=== PATIENT | male | born 1940 | race Caucasian/White ===

== ENCOUNTER 2018-07-08 11:13 | Emergency (ER) | payer MEDICARE ==
[2018-07-08 11:21] VITALS: BP 164/98
--- NOTE | 2018-07-08 12:06 | UC ---
Respiratory Complaint HPI - HPI Summary HPI Summary: 78 yo male presents with SOB. He tells me that he has a significant history of COPD, cardiac stents, and pacemaker. He is on daily oxygen around 2-3L. Over the last 3-4 days he has noticed increased work of breathing and SOB with any activity. He says even standing up straight will cause him to experience SOB. As a result, he has turned his O2 up to 4L with moderate relief. He called his PCP and they recommended his be evaluated for PNA. Pt does report some increased coughing over the last few days, but nonproductive. Denies fever, chills, sore throat, chest pain, n/v. - History of Current Complaint Chief Complaint: UCRespiratory Stated Complaint: POSS PNEUMONIA Time Seen by Provider: 07/08/18 11:46 Hx Obtained From: Patient Onset/Duration: Gradual Onset Severity Currently: None Pain Intensity: 0 Character: Cough: Nonproductive - Allergies/Home Medications Allergies/Adverse Reactions: Allergies Allergy/AdvReac Type Severity Reaction Status Date / Time ciprofloxacin [From Cipro] Allergy GI Upset Verified 07/08/18 11:22 Home Medications: Home Medications Albuterol/Ipratropium NEB.JES* [Duoneb (Albuterol 2.5 MG/Ipratropium 0.5 MG)] 1 neb INH Q6H PRN 07/08/18 [History Confirmed 07/08/18] Digoxin [Digitek] 125 mcg PO 07/08/18 [History] Finasteride [Proscar] 5 mg PO 07/08/18 [History] Fluticasone NASAL SPRAY 50MCG* [Flonase NASAL SPRAY 50MCG*] 2 spray BOTH NARES DAILY 07/08/18 [History Confirmed 07/08/18] Metoprolol Succinate XL TAB* [Toprol XL TAB*] 50 mg PO DAILY 07/08/18 [History Confirmed 07/08/18] Roflumilast [Daliresp] 500 mcg PO 07/08/18 [History] Rosuvastatin (NF) [Crestor (NF)] 10 mg PO 1700 07/08/18 [History Confirmed 07/08] PMH/Surg Hx/FS Hx/Imm Hx Endocrine History: Dyslipidemia Cardiovascular History: Cardiac Disease, Hypertension, Pacemaker/ICD Respiratory History: COPD - Surgical History Surgical History: Yes Surgery Procedure, Year, and Place: iza to rt leg, stent, pacer - Family History Known Family History: Positive: Cardiac Disease, Respiratory Disease - Social History Occupation: Retired Lives: With Family Alcohol Use: None Substance Use Type: None Smoking Status (MU): Former Smoker Review of Systems Constitutional: Negative Skin: Negative Eyes: Negative ENT: Negative Respiratory: Shortness Of Breath, Cough Cardiovascular: Negative Gastrointestinal: Negative Neurological: Negative Psychological: Negative All Other Systems Reviewed And Are Negative: Yes Physical Exam - Summary Physical Exam Summary: GENERAL: NAD. 4L via NC SKIN: No rashes, sores, lesions, or open wounds. HEENT: Head: AT/NC Eyes: Conjunctiva clear without inflammation or discharge. Ears: Hearing grossly normal. TMs intact, no bulging, erythema, or edema. Nose: Nasal mucosa pink and moist. NTTP maxillary and frontal sinus. Throat: Posterior oropharynx without exudates, erythema, or tonsillar enlargement. Uvula midline. NECK: Supple. Nontender. No lymphadenopathy. CHEST: Decreased and distant breath sounds throughout. No r/r/w appreciated. No accessory muscle use. Breathing comfortably and in no distress. CV: Pulses intact. Brisk cap refill. NEURO: Alert. CN II-XII grossly intact. PSYCH: Age appropriate behavior. Triage Information Reviewed: Yes Vital Signs: Initial Vital Signs Temp 98.2 F 07/08/18 11:17 Pulse 90 07/08/18 11:17 Resp 22 07/08/18 11:17 BP 164/98 07/08/18 11:17 Pulse Ox 97 07/08/18 11:17 Vital Signs Reviewed: Yes Diagnostic Evaluation - Laboratory O2 Sat by Pulse Oximetry: 97 Respiratory Course/Dx - Course Course Of Treatment: CXR: IMPRESSION: FINDINGS CONSISTENT WITH COPD, NO EVIDENCE FOR ACUTE FINDING. EKG with paced rhythm at 104bpm. Incomplete LBBB. No ST changes as read by Dr. Houser. At rest on 4L his O2% is 97%. With light walking on 4L his O2% drops to ~92%. This could be a COPD exacerbation, but I believe pt is in need of more testing such as stat labwork and potential advanced imaging of the chest. For these reasons I have advised pt and his to go to the ED for further evaluation - pt and were agreeable to this. will drive. - Differential Dx/Diagnosis Provider Diagnoses: SOB. COPD Discharge - Sign-Out/Discharge Documenting (check all that apply): Patient Departure - Discharge Plan Condition: Stable Disposition: HOME-RECOMMEND TO ED Referrals: Wicho Paris MD [Primary Care Provider] - Additional Instructions: Please go to the ER for further evaluation of your increased shortness of breath - Billing Disposition and Condition Condition: STABLE Disposition: Home-Recommend to ED
--- NOTE | 2018-07-08 12:28 | RAD ---
INDICATION: Shortness of breath. COMPARISON: Comparison is made with a prior chest x-ray study from April 06, 2010. TECHNIQUE: Dual-energy PA and lateral views of the chest were obtained. FINDINGS: The heart is within normal limits in size. There is a dual-chamber transvenous pacemaker present. The lungs are hyperinflated. There is mild prominence of the interstitial markings. No focal infiltrate or pleural effusion is seen. IMPRESSION: FINDINGS CONSISTENT WITH COPD, NO EVIDENCE FOR ACUTE FINDING.
== END 2018-07-08 12:55 | disposition home health service (06) ==
LOC: UCEAST 11:13
DX: R06.02 Shortness of breath (principal); J44.9 Chronic obstructive pulmonary disease, unspecified; Z99.81 Dependence on supplemental oxygen; E78.5 Hyperlipidemia, unspecified; I10 Essential (primary) hypertension; Z95.810 Presence of automatic (implantable) cardiac defibrillator; Z88.1 Allergy status to other antibiotic agents; Z87.891 Personal history of nicotine dependence
CPT/HCPCS: 71046; 93005; 99212; G0463

== ENCOUNTER 2018-07-08 13:33 | Inpatient (IN) | payer MEDICARE ==
[2018-07-08 15:06] LABS: ABS Basophils 0 10^3/ul (0-0.2); ABS Eosinophils 0.1 10^3/ul (0-0.6); ABS Lymphocytes 0.7 10^3/ul (1.0-4.8); ABS Monocytes 0.5 10^3/ul (0-0.8); ABS Neutrophils 6.6 10^3/ul (1.5-7.7); ABS Nucleated RBC 0 10^3/ul; Eosinophil % 1.4 % (0-6); Hematocrit 41 % (42-52); Hemoglobin 13.4 g/dl (14.0-18.0); Lymphocyte % 8.3 % (25-47); Mean Corpuscular HGB Conc 33 g/dl (31-36); Mean Corpuscular Hemoglobin 28 pg (27-31); Mean Corpuscular Volume 85 fL (80-94); Mean Platelet Volume 8.2 um3 (7.4-10.4); Nucleated Red Blood Cells % 0; Platelet Count 168 10^3/ul (150-450); Red Blood Count 4.84 10^6/ul (4.00-5.40); Red Cell Distribution Width 15 % (10.5-15); White Blood Count 7.9 10^3/ul (3.5-10.8)
[2018-07-08 15:19] LABS: EGFR Non-African American 88.1 (>60)
[2018-07-08] MEDS ORDERED: methylPREDNISolone 125 MG* 2 ML VIAL IV ONE (17:14)
--- NOTE | 2018-07-08 17:15 | ED ---
Shortness of Breath - HPI Summary HPI Summary: This patient is a 78 year old M referred to [facility] by urgent care accompanied by family with a chief complaint of SOB that began 3 days ago. The patient rates the pain 0/10 in severity. Symptoms aggravated by exertion. Symptoms alleviated by nothing. Patient reports cough (productive). Patient denies fever, chills, CP , bilateral LE edema, abd pain, nausea, vomiting, and headache. Patient is on 3L of home O2. - History of Current Complaint Chief Complaint: EDShortnessOfBreath Time Seen by Provider: 07/08/18 16:59 Hx Obtained From: Patient Onset/Duration: Sudden Onset, Lasting Days, Still Present Timing: Constant Current Severity: Moderate Dyspnea At: Rest Aggrevating Factors: Other - Exertion Alleviating Factors: Nothing Associated Signs & Symptoms: Cough (Productive) - Allergy/Home Medications Allergies/Adverse Reactions: Allergies Allergy/AdvReac Type Severity Reaction Status Date / Time ciprofloxacin [From Cipro] Allergy GI Upset Verified 07/08/18 17:03 PMH/Surg Hx/FS Hx/Imm Hx Previously Healthy: No Cardiovascular History: Reports: Hx Hypertension, Hx Pacemaker/ICD Respiratory History: Reports: Hx Chronic Obstructive Pulmonary Disease (COPD) - Cancer History Cancer Type, Location and Year: skin ca - Surgical History Surgery Procedure, Year, and Place: iza to rt leg, stent, pacer - Immunization History Immunizations Up to Date: Unable to Obtain/Confirm Infectious Disease History: No Infectious Disease History: Denies: Traveled Outside the [place] in Last 30 Days - Family History Known Family History: Positive: Cardiac Disease, Respiratory Disease - Social History Occupation: Retired Lives: With Family Alcohol Use: None Hx Substance Use: No Substance Use Type: Reports: None Hx Tobacco Use: Yes Smoking Status (MU): Former Smoker Review of Systems Negative: Fever, Chills Negative: Chest Pain Positive: Shortness Of Breath, Cough Negative: Abdominal Pain, Vomiting, Nausea Negative: Edema Negative: Headache All Other Systems Reviewed And Are Negative: Yes Physical Exam - Summary Physical Exam Summary: VITAL SIGNS: Reviewed. GENERAL: Patient is a well-developed and nourished male who is lying comfortable in the stretcher. Patient is ill appearing. HEAD AND FACE: No signs of trauma. No ecchymosis, hematomas or skull depressions. No sinus tenderness. EYES: PERRLA, EOMI x 2, No injected conjunctiva, no nystagmus. EARS: Hearing grossly intact. Ear canals and tympanic membranes are within normal limits. MOUTH: Oropharynx within normal limits. NECK: Supple, trachea is midline, no adenopathy, no JVD, no carotid bruit, no c- spine tenderness, neck with full ROM. CHEST: Symmetric, no tenderness at palpation LUNGS: Decreased breath sounds bilaterally. Crackles in the bases of the lungs CVS: Regular rate and rhythm, S1 and S2 present, no murmurs or gallops appreciated. ABDOMEN: Soft, non-tender. No signs of distention. No rebound no guarding, and no masses palpated. Bowel sounds are normal. EXTREMITIES: FROM in all major joints, no edema, no cyanosis or clubbing. NEURO: Alert and oriented x 3. No acute neurological deficits. Speech is normal and follows commands. SKIN: Dry and warm Triage Information Reviewed: Yes Vital Signs On Initial Exam: Initial Vitals Temp Pulse Resp BP Pulse Ox 97.9 F 95 18 148/68 89 07/08/18 13:42 07/08/18 13:42 07/08/18 13:42 07/08/18 13:42 07/08/18 13:42 Vital Signs Reviewed: Yes Diagnostics - Vital Signs Vital Signs Temp Pulse Resp BP Pulse Ox 07/08/18 16:15 98.2 F 95 22 153/77 96 07/08/18 13:42 97.9 F 95 18 148/68 89 - Laboratory Lab Results: Lab Results 07/08/18 07/08/18 07/08/18 Range/Units 14:49 14:49 14:49 WBC 7.9 (3.5-10.8) 10^3/ul RBC 4.84 (4.00-5.40) 10^6/ul Hgb 13.4 L (14.0-18.0) g/dl Hct 41 L (42-52) % MCV 85 (80-94) fL MCH 28 (27-31) pg MCHC 33 (31-36) g/dl RDW 15 (10.5-15) % Plt Count 168 (150-450) 10^3/ul MPV 8.2 (7.4-10.4) um3 Neut % (Auto) 83.7 H (38-83) % Lymph % (Auto) 8.3 L (25-47) % Troup % (Auto) 6.2 (0-7) % Eos % (Auto) 1.4 (0-6) % Baso % (Auto) 0.4 (0-2) % Absolute Neuts (auto) 6.6 (1.5-7.7) 10^3/ul Absolute Lymphs (auto) 0.7 L (1.0-4.8) 10^3/ul Absolute Monos (auto) 0.5 (0-0.8) 10^3/ul Absolute Eos (auto) 0.1 (0-0.6) 10^3/ul Absolute Basos (auto) 0 (0-0.2) 10^3/ul Absolute Nucleated RBC 0 10^3/ul Nucleated RBC % 0 Sodium 143 (135-145) mmol/L Potassium 4.1 (3.5-5.0) mmol/L Chloride 103 (101-111) mmol/L Carbon Dioxide 36 H (22-32) mmol/L Anion Gap 4 (2-11) mmol/L BUN 14 (6-24) mg/dL Creatinine 0.84 (0.67-1.17) mg/dL Est GFR ( Amer) 106.7 (>60) Est GFR (Non-Af Amer) 88.1 (>60) BUN/Creatinine Ratio 16.7 (8-20) Glucose 154 H (70-100) mg/dL Lactic Acid 0.7 (0.5-2.0) mmol/L Calcium 9.0 (8.6-10.3) mg/dL Total Bilirubin 0.40 (0.2-1.0) mg/dL AST 16 (13-39) U/L ALT 11 (7-52) U/L Alkaline Phosphatase 56 (34-104) U/L Troponin I 0.02 (<0.04) ng/mL B-Natriuretic Peptide ( - 100) pg/mL Total Protein 6.8 (6.4-8.9) g/dL Albumin 4.1 (3.2-5.2) g/dL Globulin 2.7 (2-4) g/dL Albumin/Globulin Ratio 1.5 (1-3) 07/08/18 Range/Units 14:49 WBC (3.5-10.8) 10^3/ul RBC (4.00-5.40) 10^6/ul Hgb (14.0-18.0) g/dl Hct (42-52) % MCV (80-94) fL MCH (27-31) pg MCHC (31-36) g/dl RDW (10.5-15) % Plt Count (150-450) 10^3/ul MPV (7.4-10.4) um3 Neut % (Auto) (38-83) % Lymph % (Auto) (25-47) % Troup % (Auto) (0-7) % Eos % (Auto) (0-6) % Baso % (Auto) (0-2) % Absolute Neuts (auto) (1.5-7.7) 10^3/ul Absolute Lymphs (auto) (1.0-4.8) 10^3/ul Absolute Monos (auto) (0-0.8) 10^3/ul Absolute Eos (auto) (0-0.6) 10^3/ul Absolute Basos (auto) (0-0.2) 10^3/ul Absolute Nucleated RBC 10^3/ul Nucleated RBC % Sodium (135-145) mmol/L Potassium (3.5-5.0) mmol/L Chloride (101-111) mmol/L Carbon Dioxide (22-32) mmol/L Anion Gap (2-11) mmol/L BUN (6-24) mg/dL Creatinine (0.67-1.17) mg/dL Est GFR ( Amer) (>60) Est GFR (Non-Af Amer) (>60) BUN/Creatinine Ratio (8-20) Glucose (70-100) mg/dL Lactic Acid (0.5-2.0) mmol/L Calcium (8.6-10.3) mg/dL Total Bilirubin (0.2-1.0) mg/dL AST (13-39) U/L ALT (7-52) U/L Alkaline Phosphatase (34-104) U/L Troponin I (<0.04) ng/mL B-Natriuretic Peptide 93 ( - 100) pg/mL Total Protein (6.4-8.9) g/dL Albumin (3.2-5.2) g/dL Globulin (2-4) g/dL Albumin/Globulin Ratio (1-3) Result Diagrams: 07/08/18 14:49 07/08/18 14:49 Lab Statement: Any lab studies that have been ordered have been reviewed, and results considered in the medical decision making process. - Radiology CXR Radiology Interpretation Completed By: ED Physician - CXR taken at urgent care reveals lungs consistent with COPD. - EKG 1652 Cardiac Rate: NL EKG Interpretation: Atrail paced at [address] elevation Re-Evaluation - Re-Evaluation First Eval Re-Evaluation Time: 18:45 Change: Unchanged Comment: Discussed plan of care and results with patient and family Course/Dx - Course Assessment/Plan: This patient is a 78-year-old male who presents to the emergency department with a chief complaint of shortness of breath. The patient has history of COPD. Patient went to the urgent care and then he was directed to the emergency department for further workup and management. Blood test results without any significant abnormality. ABG shows a pH of 7.8, PCO2 62, PCO2 0106. O2 sat is 98.8. The patient was given IV fluids and a couple to DuoNebs well as Solu-Medrol. The patient continues to have shortness of breath however he reports that he has improved. At this point I discussed my physical exam, findings and test results with Dr. Vale from the hospitalist services and she accepted the patient for admission. Patient is hemodynamically stable alert and oriented 3. - Diagnoses Differential Diagnosis/HQI/PQRI: Positive: Asthma, CHF, COPD Exacerbation Provider Diagnoses: COPD exacerbation - Physician Notifications Discussed Care of Patient With: Connie Vale Time Discussed With Above Provider: 18:46 Instructed by Provider To: Other - Consult with Dr. Vale (hospitalist) at 1846. She agrees to admit patient for further evaluation. Discharge - Sign-Out/Discharge Documenting (check all that apply): Patient Departure - Admit [place] [facility] [place] Discharge Plan Condition: Stable Disposition: ADMITTED TO [facility] Referrals: Wicho Paris MD [Primary Care Provider] - Attestations Scribe Attestation: This is altagracia Burden documenting for attending Tyrese Fuentes MD. User Type: Provider with Scribe Provider Attestation: The documentation recorded by the scribe accurately reflects the service I personally performed and the decisions made by me.
[2018-07-08] MEDS: Albuterol/Ipratropium NEB.SOL* Albuterol 2.5 MG/Ipratropium 0.5 MG 3 ML INH PRN ×2 (17:38→17:56)
[2018-07-08] MEDS ORDERED: Albuterol/Ipratropium NEB.SOL* Albuterol 2.5 MG/Ipratropium 0.5 MG 3 ML INH ONE (18:46)
[2018-07-08] MEDS ORDERED: Albuterol/Ipratropium NEB.SOL* Albuterol 2.5 MG/Ipratropium 0.5 MG 3 ML INH PRN (19:38)
[2018-07-08] MEDS ORDERED: guaiFENesin LIQ* 100 MG/5 ML UDC PO PRN (19:39)
[2018-07-08] MEDS ORDERED: Albuterol/Ipratropium NEB.SOL* Albuterol 2.5 MG/Ipratropium 0.5 MG 3 ML INH SCH (20:00)
[2018-07-08] MEDS: Heparin VIAL(*) 5000 UNITS/ML VIAL (FIVE THOUSAND) SUBCUT SCH (21:56)
[2018-07-08] MEDS: Benzonatate CAP* 100 MG PO SCH (21:56)
--- NOTE | 2018-07-08 22:55 | HP ---
CC: Dr. Paris* HISTORY AND PHYSICAL: DATE OF ADMISSION: 07/08/18 PRIMARY CARE PROVIDER: Dr. Paris. ATTENDING PHYSICIAN: Dr. Deangelo Moore* (dictation provider by Karen Navarro NP) . CHIEF COMPLAINT: Shortness of breath with cough. HISTORY OF PRESENT ILLNESS: Mr. Watters is a 78-year-old male with past medical history of COPD, on home O2 at 2 L at bedtime and 3 L when up during the day, as well as a history of coronary artery disease with stent x1 and a pacemaker for bradycardia, who presents to the hospital today with concern for shortness of breath and cough x3 days. Mr. Watters states that he is normally followed by Pulmonology at [facility]. He began to feel unwell about 3 days ago. He noted increased cough and worsening shortness of breath. He increased his home O2 from the 3 L up to 4 L, but found no relief with this. He continued to use his nebulizer, but despite this, his symptoms worsened. Today, he could not catch his breath at all and therefore, ultimately went to [facility] for evaluation. At [facility], he had a chest xray which showed no evidence of acute process, only stigmata of COPD. Based the severity of his symptoms, it was recommended that he come to the emergency room for evaluation, In the emergency room, Mr. Watters had labs, which were unremarkable. His pH was 7.38 with pCO2 of 62. His troponin was 0.02. He has no leukocytosis. He is satting 99% on 4 L nasal cannula. He is afebrile. He is tachycardic with the heart rate running about 90 to 115. Blood pressure is stable. Despite giving intravenous steroids and multiple rounds of nebulizer treatments, the patient remains very short of breath with a harsh productive cough. PAST MEDICAL HISTORY: 1. COPD, on 2 L at bedtime and 3 L nasal cannula during the day. 2. Coronary artery disease, with stent x1. 3. Pacemaker placement for bradycardia. 4. Atrial fibrillation. 5. History of a right leg surgery. 6. History for skin cancer resections. 6. History of abdominal hernia x2. MEDICATIONS: As outpatient are: 1. DuoNeb nebulizer 1 neb inhaled q.6 hours p.r.n. 2. Fluticasone nasal spray 2 sprays both nares daily. 3. Daliresp 500 mcg p.o. daily. 4. Rosuvastatin 10 mg p.o. daily. 5. Digoxin 125 mcg p.o. daily alternating with 250 mcg p.o. daily. 6. Finasteride 5 mg p.o. daily. 7. Metoprolol succinate 40 mg p.o. daily. 8. Cartia XT 120 mg p.o. daily. ALLERGIES: CIPROFLOXACIN. FAMILY HISTORY: The patient reports his mother from heart-related illness at 97, as is his father at age 58. SOCIAL HISTORY: The patient states he quit smoking in 1980. No report of alcohol or drug use. He lives with his , Sona, who is the healthcare proxy. REVIEW OF SYSTEMS: A 14-point review of systems was completed with Mr. Watters and all of them not mentioned above were negative. PHYSICAL EXAMINATION GENERAL: Mr. Watters is sitting in the bed with his at the bedside. He is in no acute distress, but does appear mildly short of breath. VITAL SIGNS: Temperature 98.2, heart rate 113, respiratory rate 18, O2 saturation 100% on 4 L nasal cannula, blood pressure 149/85. LUNGS: Diminished throughout. There is an occasional expiratory wheeze. There is no accessory muscle use. HEART: S1, S2. No murmur, rub, or gallop and regular. ABDOMEN: Soft, nontender, with bowel sounds positive x4. EXTREMITIES: No cyanosis or edema. NEUROLOGIC: He is alert, he is oriented x3. He moves all extremities equally. There is no facial asymmetry or focal weakness. Extraocular movements are intact. SKIN: Intact. DIAGNOSTIC STUDIES/LAB DATA: Sodium 143, potassium 4.1, chloride 103, serum bicarbonate 36, BUN 14, creatinine 0.84, glucose 154, lactic acid 0.7. Troponin 0.02. BNP 93. WBC is 7.9, hemoglobin 13.4, hematocrit 41, platelet count 168. Blood gas shows pH 7.38, pCO2 of 62, pO2 of 106, bicarbonate 32.1. Chest x-ray from [facility] shows findings consistent with COPD with no evidence of an acute finding. ASSESSMENT AND PLAN: Mr. Watters is a 78-year-old male with a past medical history of chronic obstructive pulmonary disease, on home O2, as well as coronary artery disease, with stent placement x1, who presents to the hospital today with concern for 3 days of worsening shortness of breath with cough. Our plans are for inpatient admission as I expect his length of stay to be greater than 2 days for the followin. Shortness of breath with cough: The patient is presenting with signs of chronic obstructive pulmonary disease exacerbation. Plan to continue Solu- Medrol at 40 mg q.6 hours with Duo nebulizers q.4 hours while awake and p.r.n. He will have guaifenesin and benzonatate for cough, He will have the oxygen titrated based on the clinical course. 2. History of coronary artery disease: Plan to continue home metoprolol. 3. Atrial fibrillation. Continue digoxin and metoprolol. According to the records from Dr. Erickson, patient has refused anticoagulation. 4. DVT prophylaxis with heparin subcu. 5. Code status is full code. This was reviewed with the patient at the bedside today. TIME SPENT: Approximately 60 minutes was spent on the admission of this patient , more than half the time was spent with the patient at the bedside reviewing the events leading up to this hospitalization, performing the physical examination, and reviewing the plan of care. KAREN NAVARRO NP [id number]/[facility] #: [id number] SHAHEEN
[2018-07-08] MEDS: Albuterol/Ipratropium NEB.SOL* Albuterol 2.5 MG/Ipratropium 0.5 MG 3 ML INH SCH (23:34)
[2018-07-09] MEDS: Albuterol/Ipratropium NEB.SOL* Albuterol 2.5 MG/Ipratropium 0.5 MG 3 ML INH SCH ×5 (02:47→19:43)
[2018-07-09] MEDS: methylPREDNISolone SOD 40 MG* 1 ML VIAL IV SCH ×3 (04:32→22:08)
[2018-07-09] MEDS: Heparin VIAL(*) 5000 UNITS/ML VIAL (FIVE THOUSAND) SUBCUT SCH ×3 (06:43→22:08)
[2018-07-09] MEDS ORDERED: Digoxin TAB* 0.125 MG PO SCH (09:00)
[2018-07-09] MEDS ORDERED: Metoprolol Succinate XL TAB* 50 MG PO SCH (09:00)
--- NOTE | 2018-07-09 09:17 | PN ---
Subjective Date of Service: 07/09/18 Interval History: Feels a little bit better today but still short of breath and far from his home O2 requirement. No cough this morning. Does relate a recent cold with runny nose and eyes. No pain at this time. He walked to the bathroom this morning and felt a little better than he had been feeling with ambulation before he came to the hospital. Objective Active Medications: Albuterol/Ipratropium (Duoneb (Albuterol 2.5 Mg/Ipratropium 0.5 Mg)) 2 neb INH Q20M PRN PRN Reason: SHORTNESS OF BREATH Last Admin: 07/08/18 17:56 Dose: 1 neb Albuterol/Ipratropium (Duoneb (Albuterol 2.5 Mg/Ipratropium 0.5 Mg)) 1 neb INH Q4H PRN PRN Reason: SOB/WHEEZING Albuterol/Ipratropium (Duoneb (Albuterol 2.5 Mg/Ipratropium 0.5 Mg)) 1 neb INH [id number] AWAKE [facility] Last Admin: 07/09/18 08:31 Dose: 1 neb Benzonatate (Tessalon Cap*) 100 mg PO BID [facility] Last Admin: 07/08/18 21:56 Dose: 100 mg Digoxin (Lanoxin Tab*) 0.25 mg PO MoWeFr@1700 [facility] Diltiazem HCl (Cardizem Cd Cap*) 120 mg PO DAILY JACKY Finasteride (Proscar Tab*) 5 mg PO DAILY [facility] Guaifenesin (Robitussin*) 5 ml PO Q4H PRN PRN Reason: COUGH Heparin Sodium (Porcine) (Heparin Vial(*)) 5,000 units SUBCUT Q8HR [facility] Last Admin: 07/09/18 06:43 Dose: 5,000 units Methylprednisolone Sodium Succinate (Solu-Medrol 40 Mg) 40 mg IV Q8H [facility] Last Admin: 07/09/18 04:32 Dose: 40 mg Metoprolol Succinate (Toprol Xl Tab*) 50 mg PO DAILY [facility] Roflumilast (Daliresp (Nf)) 500 mcg PO DAILY [facility] Vital Signs - 8 hr 07/09/18 07/09/18 07/09/18 03:33 07:10 08:33 Temperature 98.3 F 98.4 F Pulse Rate 97 99 81 Respiratory 18 Rate Blood Pressure 109/51 108/60 (mmHg) O2 Sat by Pulse 97 96 98 Oximetry Oxygen Devices in Use Now: Nasal Cannula Appearance: alert, no distress. able to speak in nearly full sentences but becomes tachypneic with speaking. Eyes: No Scleral Icterus Ears/Nose/Mouth/Throat: NL Teeth, Lips, Gums Neck: NL Appearance and Movements; NL JVP Respiratory: - - poor air movement, no wheezing or rhonchi Cardiovascular: RRR, No Edema Abdominal: NL Sounds; No Tenderness; No Distention, No Hepatosplenomegaly Lymphatic: No Cervical Adenopathy Extremities: No Edema Skin: No Rash or Ulcers Neurological: Alert and Oriented x 3 Result Diagrams: 07/08/18 14:49 07/08/18 14:49 Additional Lab and Data: Lab Results 07/08/18 07/08/18 07/08/18 Range/Units 14:49 14:49 14:49 WBC 7.9 (3.5-10.8) 10^3/ul RBC 4.84 (4.00-5.40) 10^6/ul Hgb 13.4 L (14.0-18.0) g/dl Hct 41 L (42-52) % MCV 85 (80-94) fL MCH 28 (27-31) pg MCHC 33 (31-36) g/dl RDW 15 (10.5-15) % Plt Count 168 (150-450) 10^3/ul MPV 8.2 (7.4-10.4) um3 Neut % (Auto) 83.7 H (38-83) % Lymph % (Auto) 8.3 L (25-47) % [place] % (Auto) 6.2 (0-7) % Eos % (Auto) 1.4 (0-6) % Baso % (Auto) 0.4 (0-2) % Absolute Neuts (auto) 6.6 (1.5-7.7) 10^3/ul Absolute Lymphs (auto) 0.7 L (1.0-4.8) 10^3/ul Absolute Monos (auto) 0.5 (0-0.8) 10^3/ul Absolute Eos (auto) 0.1 (0-0.6) 10^3/ul Absolute Basos (auto) 0 (0-0.2) 10^3/ul Absolute Nucleated RBC 0 10^3/ul Nucleated RBC % 0 Sodium 143 (135-145) mmol/L Potassium 4.1 (3.5-5.0) mmol/L Chloride 103 (101-111) mmol/L Carbon Dioxide 36 H (22-32) mmol/L Anion Gap 4 (2-11) mmol/L BUN 14 (6-24) mg/dL Creatinine 0.84 (0.67-1.17) mg/dL Est GFR ( Amer) 106.7 (>60) Est GFR (Non-Af Amer) 88.1 (>60) BUN/Creatinine Ratio 16.7 (8-20) Glucose 154 H (70-100) mg/dL Lactic Acid 0.7 (0.5-2.0) mmol/L Calcium 9.0 (8.6-10.3) mg/dL Total Bilirubin 0.40 (0.2-1.0) mg/dL AST 16 (13-39) U/L ALT 11 (7-52) U/L Alkaline Phosphatase 56 (34-104) U/L Troponin I 0.02 (<0.04) ng/mL B-Natriuretic Peptide ( - 100) pg/mL Total Protein 6.8 (6.4-8.9) g/dL Albumin 4.1 (3.2-5.2) g/dL Globulin 2.7 (2-4) g/dL Albumin/Globulin Ratio 1.5 (1-3) 07/08/18 Range/Units 14:49 WBC (3.5-10.8) 10^3/ul RBC (4.00-5.40) 10^6/ul Hgb (14.0-18.0) g/dl Hct (42-52) % MCV (80-94) fL MCH (27-31) pg MCHC (31-36) g/dl RDW (10.5-15) % Plt Count (150-450) 10^3/ul MPV (7.4-10.4) um3 Neut % (Auto) (38-83) % Lymph % (Auto) (25-47) % [place] % (Auto) (0-7) % Eos % (Auto) (0-6) % Baso % (Auto) (0-2) % Absolute Neuts (auto) (1.5-7.7) 10^3/ul Absolute Lymphs (auto) (1.0-4.8) 10^3/ul Absolute Monos (auto) (0-0.8) 10^3/ul Absolute Eos (auto) (0-0.6) 10^3/ul Absolute Basos (auto) (0-0.2) 10^3/ul Absolute Nucleated RBC 10^3/ul Nucleated RBC % Sodium (135-145) mmol/L Potassium (3.5-5.0) mmol/L Chloride (101-111) mmol/L Carbon Dioxide (22-32) mmol/L Anion Gap (2-11) mmol/L BUN (6-24) mg/dL Creatinine (0.67-1.17) mg/dL Est GFR ( Amer) (>60) Est GFR (Non-Af Amer) (>60) BUN/Creatinine Ratio (8-20) Glucose (70-100) mg/dL Lactic Acid (0.5-2.0) mmol/L Calcium (8.6-10.3) mg/dL Total Bilirubin (0.2-1.0) mg/dL AST (13-39) U/L ALT (7-52) U/L Alkaline Phosphatase (34-104) U/L Troponin I (<0.04) ng/mL B-Natriuretic Peptide 93 ( - 100) pg/mL Total Protein (6.4-8.9) g/dL Albumin (3.2-5.2) g/dL Globulin (2-4) g/dL Albumin/Globulin Ratio (1-3) Assess/Plan/Problems-Billing Assessment: - Patient Problems (1) COPD exacerbation Current Visit: Yes Status: Acute Code(s): J44.1 - CHRONIC OBSTRUCTIVE PULMONARY DISEASE W (ACUTE) EXACERBATION SNOMED Code(s): 467554615 Comment: likely from recent URI however, Mr. Watters relates to me that prior to a few weeks ago, he was only on 2L nocturnally. he has been turning it up on his own to 3L, and started using it during the day as well, so it sounds like he has had progression of his disease subacutely, and then a URI a few days ago caused a more sudden decompensation. continue solumedrol and duonebs and roflumilast (2) Acute hypercapnic respiratory failure Current Visit: Yes Status: Acute Code(s): J96.02 - ACUTE RESPIRATORY FAILURE WITH HYPERCAPNIA SNOMED Code(s): 502903876 Comment: due to copd exacerbation (3) Acute and chronic respiratory failure with hypoxia Current Visit: Yes Status: Acute Code(s): J96.21 - ACUTE AND CHRONIC RESPIRATORY FAILURE WITH HYPOXIA SNOMED Code(s): 03963430 Comment: also due to copd exacerbation again, baseline is 2L nocturnally and he has recently turned up to 3-4L round the clock may have underlying disease progression (4) CAD (coronary artery disease) Current Visit: Yes Status: Acute Code(s): I25.10 - ATHSCL HEART DISEASE OF [place] CORONARY ARTERY W/O ANG PCTRS SNOMED Code(s): 17080730 Comment: he is not on asa or a statin, not clear why (5) Pacemaker Current Visit: Yes Status: Acute Code(s): Z95.0 - PRESENCE OF CARDIAC PACEMAKER SNOMED Code(s): 054598215 (6) Atrial fibrillation Current Visit: Yes Status: Acute Code(s): I48.91 - UNSPECIFIED ATRIAL FIBRILLATION SNOMED Code(s): 85127473 Comment: rate controlled on digoxin, cardizem, and metoprolol no AC per outpatient notes due to patient preference
[2018-07-09] MEDS: Metoprolol Succinate XL TAB* 50 MG PO SCH (10:48)
[2018-07-09] MEDS: Diltiazem CD CAP* 120 MG PO SCH (10:48)
[2018-07-09] MEDS: Finasteride TAB* 5 MG PO SCH (10:48)
[2018-07-09] MEDS: Benzonatate CAP* 100 MG PO SCH ×2 (10:48→22:08)
[2018-07-09] MEDS: ROFLUMILAST 500 MCG PO SCH (10:49)
[2018-07-10] MEDS: Albuterol/Ipratropium NEB.SOL* Albuterol 2.5 MG/Ipratropium 0.5 MG 3 ML INH SCH ×4 (01:00→19:57)
[2018-07-10] MEDS: methylPREDNISolone SOD 40 MG* 1 ML VIAL IV SCH ×3 (05:50→21:03)
[2018-07-10] MEDS: Heparin VIAL(*) 5000 UNITS/ML VIAL (FIVE THOUSAND) SUBCUT SCH ×3 (05:50→21:03)
[2018-07-10] MEDS: Benzonatate CAP* 100 MG PO SCH ×2 (09:07→21:02)
[2018-07-10] MEDS: Diltiazem CD CAP* 120 MG PO SCH (09:07)
[2018-07-10] MEDS: Finasteride TAB* 5 MG PO SCH (09:07)
[2018-07-10] MEDS: ROFLUMILAST 500 MCG PO SCH (09:07)
[2018-07-10] MEDS: Metoprolol Succinate XL TAB* 50 MG PO SCH (09:07)
[2018-07-10] MEDS ORDERED: Benzocaine/Menthol LOZ* 1 LOZENGE PO PRN (09:30)
--- NOTE | 2018-07-10 16:44 | PN ---
Subjective Date of Service: 07/10/18 Interval History: pt reports he is better today but continues to be SOB at rest. He denies fever/ chills. Reports cough "fits" with some sputum production. He would like to go home stating he feels better then agress he feels too sick to go home. He follow with pulm at [place]. Last hospitalization last fall. Underwent a walking test within the last year and was told he needs O2 with ambulation. Objective Active Medications: Albuterol/Ipratropium (Duoneb (Albuterol 2.5 Mg/Ipratropium 0.5 Mg)) 2 neb INH Q20M PRN PRN Reason: SHORTNESS OF BREATH Last Admin: 07/08/18 17:56 Dose: 1 neb Albuterol/Ipratropium (Duoneb (Albuterol 2.5 Mg/Ipratropium 0.5 Mg)) 1 neb INH Q4H PRN PRN Reason: SOB/WHEEZING Albuterol/Ipratropium (Duoneb (Albuterol 2.5 Mg/Ipratropium 0.5 Mg)) 1 neb INH [id number] AWAKE ON LICENSE OF [facility] Last Admin: 07/10/18 13:33 Dose: 1 neb Benzonatate (Tessalon Cap*) 100 mg PO BID ON [facility] Last Admin: 07/10/18 09:07 Dose: 100 mg Digoxin (Lanoxin Tab*) 0.25 mg PO MoWeFr@1700 ON [facility] OF [facility] Diltiazem HCl (Cardizem Cd Cap*) 120 mg PO DAILY [facility] Last Admin: 07/10/18 09:07 Dose: 120 mg Finasteride (Proscar Tab*) 5 mg PO DAILY ON [facility] Last Admin: 07/10/18 09:07 Dose: 5 mg Guaifenesin (Robitussin*) 5 ml PO Q4H PRN PRN Reason: COUGH Heparin Sodium (Porcine) (Heparin Vial(*)) 5,000 units SUBCUT Q8HR ON [facility] OF [facility] Last Admin: 07/10/18 13:20 Dose: 5,000 units Methylprednisolone Sodium Succinate (Solu-Medrol 40 Mg) 40 mg IV Q8H ON [facility] OF [facility] Last Admin: 07/10/18 13:20 Dose: 40 mg Metoprolol Succinate (Toprol Xl Tab*) 50 mg PO DAILY [facility] Last Admin: 07/10/18 09:07 Dose: 50 mg Roflumilast (Daliresp (Nf)) 500 mcg PO DAILY [facility]ACK[facility] Last Admin: 07/10/18 09:07 Dose: 500 mcg Throat Lozenges (Chloraseptic Emiliana*) 1 emiliana PO Q6H PRN PRN Reason: SORE THROAT Vital Signs - 8 hr 07/10/18 07/10/18 11:14 13:35 Temperature 97.7 F Pulse Rate 86 83 Respiratory 16 20 Rate Blood Pressure 112/62 (mmHg) O2 Sat by Pulse 95 92 Oximetry Oxygen Devices in Use Now: Nasal Cannula Appearance: 78 yo male well developed A+Ox3. appears mildy dyspneic Eyes: No Scleral Icterus, PERRLA Ears/Nose/Mouth/Throat: NL Teeth, Lips, Gums, Mucous Membranes Moist Respiratory: - - mildy dyspneic, no accessory muscle use, diminished throughout Cardiovascular: NL Sounds; No Murmurs; No JVD, RRR, No Edema Abdominal: NL Sounds; No Tenderness; No Distention Extremities: No Edema, No Clubbing, Cyanosis Skin: No Rash or Ulcers, No Nodules or Sclerosis Neurological: Alert and Oriented x 3, NL Sensation, NL Gait, NL Muscle Strength and Tone Lines/Tubes/Other Access: Clean, Dry and Intact Peripheral IV Nutrition: Taking PO's Result Diagrams: 07/08/18 14:49 07/08/18 14:49 Additional Lab and Data: Lab Results 07/08/18 07/08/18 07/08/18 Range/Units 14:49 14:49 14:49 WBC 7.9 (3.5-10.8) 10^3/ul RBC 4.84 (4.00-5.40) 10^6/ul Hgb 13.4 L (14.0-18.0) g/dl Hct 41 L (42-52) % MCV 85 (80-94) fL MCH 28 (27-31) pg MCHC 33 (31-36) g/dl RDW 15 (10.5-15) % Plt Count 168 (150-450) 10^3/ul MPV 8.2 (7.4-10.4) um3 Neut % (Auto) 83.7 H (38-83) % Lymph % (Auto) 8.3 L (25-47) % [place] % (Auto) 6.2 (0-7) % Eos % (Auto) 1.4 (0-6) % Baso % (Auto) 0.4 (0-2) % Absolute Neuts (auto) 6.6 (1.5-7.7) 10^3/ul Absolute Lymphs (auto) 0.7 L (1.0-4.8) 10^3/ul Absolute Monos (auto) 0.5 (0-0.8) 10^3/ul Absolute Eos (auto) 0.1 (0-0.6) 10^3/ul Absolute Basos (auto) 0 (0-0.2) 10^3/ul Absolute Nucleated RBC 0 10^3/ul Nucleated RBC % 0 Sodium 143 (135-145) mmol/L Potassium 4.1 (3.5-5.0) mmol/L Chloride 103 (101-111) mmol/L Carbon Dioxide 36 H (22-32) mmol/L Anion Gap 4 (2-11) mmol/L BUN 14 (6-24) mg/dL Creatinine 0.84 (0.67-1.17) mg/dL Est GFR ( Amer) 106.7 (>60) Est GFR (Non-Af Amer) 88.1 (>60) BUN/Creatinine Ratio 16.7 (8-20) Glucose 154 H (70-100) mg/dL Lactic Acid 0.7 (0.5-2.0) mmol/L Calcium 9.0 (8.6-10.3) mg/dL Total Bilirubin 0.40 (0.2-1.0) mg/dL AST 16 (13-39) U/L ALT 11 (7-52) U/L Alkaline Phosphatase 56 (34-104) U/L Troponin I 0.02 (<0.04) ng/mL B-Natriuretic Peptide ( - 100) pg/mL Total Protein 6.8 (6.4-8.9) g/dL Albumin 4.1 (3.2-5.2) g/dL Globulin 2.7 (2-4) g/dL Albumin/Globulin Ratio 1.5 (1-3) 07/08/18 Range/Units 14:49 WBC (3.5-10.8) 10^3/ul RBC (4.00-5.40) 10^6/ul Hgb (14.0-18.0) g/dl Hct (42-52) % MCV (80-94) fL MCH (27-31) pg MCHC (31-36) g/dl RDW (10.5-15) % Plt Count (150-450) 10^3/ul MPV (7.4-10.4) um3 Neut % (Auto) (38-83) % Lymph % (Auto) (25-47) % [place] % (Auto) (0-7) % Eos % (Auto) (0-6) % Baso % (Auto) (0-2) % Absolute Neuts (auto) (1.5-7.7) 10^3/ul Absolute Lymphs (auto) (1.0-4.8) 10^3/ul Absolute Monos (auto) (0-0.8) 10^3/ul Absolute Eos (auto) (0-0.6) 10^3/ul Absolute Basos (auto) (0-0.2) 10^3/ul Absolute Nucleated RBC 10^3/ul Nucleated RBC % Sodium (135-145) mmol/L Potassium (3.5-5.0) mmol/L Chloride (101-111) mmol/L Carbon Dioxide (22-32) mmol/L Anion Gap (2-11) mmol/L BUN (6-24) mg/dL Creatinine (0.67-1.17) mg/dL Est GFR ( Amer) (>60) Est GFR (Non-Af Amer) (>60) BUN/Creatinine Ratio (8-20) Glucose (70-100) mg/dL Lactic Acid (0.5-2.0) mmol/L Calcium (8.6-10.3) mg/dL Total Bilirubin (0.2-1.0) mg/dL AST (13-39) U/L ALT (7-52) U/L Alkaline Phosphatase (34-104) U/L Troponin I (<0.04) ng/mL B-Natriuretic Peptide 93 ( - 100) pg/mL Total Protein (6.4-8.9) g/dL Albumin (3.2-5.2) g/dL Globulin (2-4) g/dL Albumin/Globulin Ratio (1-3) Assess/Plan/Problems-Billing Assessment: 78 yo male with PMH COPD on home O2 2L at bedtime and recently started wearing O2 2-3L during day the last few weeks on his own accord, hx of CAD s/p stent, afib, 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 No fevers noted. no leukocytosis Pt reports he has been on O2 while ambulating for 1 year and reports he misspoke talking to Dr. Carrero in which it stated in her note that this was new - it was new that he was wearing 3-4L almost 20/06 continue solumedrol (trend down) and duonebs and roflumilast Repeat labs in am Obtain CT chest order sputum cx (2) Acute and chronic respiratory failure with hypoxia Comment: also due to copd exacerbation again, baseline is 2L nocturnally and while ambulating, and he has recently turned up to 3-4L round the clock may have underlying disease progression (3) Acute hypercapnic respiratory failure Comment: due to copd exacerbation (4) Atrial fibrillation Comment: rate controlled on digoxin, cardizem, and metoprolol no AC per outpatient notes due to patient preference (5) CAD (coronary artery disease) Comment: he is not on asa or a statin, not clear why (6) Pacemaker (7) DVT prophylaxis Comment: HSQ Status and Disposition: OBV flip to inpatient - Continues to be in COPD exacerbation. Home when medically stable.
[2018-07-10] MEDS: Digoxin TAB* 0.25 MG PO SCH (17:04)
--- NOTE | 2018-07-10 23:15 | RAD ---
CLINICAL HISTORY: 78 years old, male; Condition or disease; Lung condition and disease; Copd; With exacerbation; Prior surgery; Surgery date: 6+ months; Surgery type: Pacemaker; Additional info: Dyspnea, copd exacerbation TECHNIQUE: Axial computed tomography images of the chest without intravenous contrast. Coronal and sagittal reformatted images were created and reviewed. COMPARISON: DX - CXR CHEST PA LAT 2 VWS 2018-07-08 11:52 FINDINGS: Lungs: Bilateral emphysematous changes of the lungs. Mild peripheral patchy peripheral airspace consolidation with tree-in-bud formation involving the posterior segment of the RIGHT upper lobe and all the segments of the RIGHT lower lobe. Pleural space: Unremarkable. No pneumothorax. No significant effusion. Heart: Unremarkable. No cardiomegaly. No significant pericardial effusion. Bones/joints: Degenerative changes of the spine. No acute fracture. No dislocation. Soft tissues: Unremarkable. Vasculature: Diffuse atherosclerotic calcification including the coronary arteries and the origins of the great vessels. No thoracic aortic aneurysm. Lymph nodes: Unremarkable. No enlarged lymph nodes. Gallbladder and bile ducts: Cholelithiasis. Tubes, lines and devices: Cardiac pacer device present with intact leads. IMPRESSION: #. Mild peripheral airspace consolidation in the RIGHT lung suspicious for pneumonia superimposed on chronic obstructive pulmonary disease. #. Negative for pleural effusion. #. Results discussed with nurse Angie August 07/11/2018 8:10 AM EDT
[2018-07-11] MEDS: Albuterol/Ipratropium NEB.SOL* Albuterol 2.5 MG/Ipratropium 0.5 MG 3 ML INH SCH ×4 (01:16→20:40)
[2018-07-11] MEDS: Heparin VIAL(*) 5000 UNITS/ML VIAL (FIVE THOUSAND) SUBCUT SCH ×3 (05:28→21:09)
[2018-07-11 06:29] LABS: ABS Basophils 0 10^3/ul (0-0.2); ABS Eosinophils 0 10^3/ul (0-0.6); ABS Lymphocytes 0.5 10^3/ul (1.0-4.8); ABS Monocytes 0.4 10^3/ul (0-0.8); ABS Neutrophils 9.6 10^3/ul (1.5-7.7); ABS Nucleated RBC 0 10^3/ul; Eosinophil % 0 % (0-6); Hematocrit 39 % (42-52); Hemoglobin 12.8 g/dl (14.0-18.0); Lymphocyte % 4.6 % (25-47); Mean Corpuscular HGB Conc 33 g/dl (31-36); Mean Corpuscular Hemoglobin 28 pg (27-31); Mean Corpuscular Volume 84 fL (80-94); Mean Platelet Volume 8.4 um3 (7.4-10.4); Nucleated Red Blood Cells % 0; Platelet Count 178 10^3/ul (150-450); Red Blood Count 4.63 10^6/ul (4.00-5.40); Red Cell Distribution Width 15 % (10.5-15); White Blood Count 10.4 10^3/ul (3.5-10.8)
[2018-07-11 06:45] LABS: EGFR Non-African American 94.6 (>60)
[2018-07-11] MEDS ORDERED: cefTRIAXone(*) 1 GM in NS 0.9% 50 ML* 50 ML IVPB ONE ×6 (07:29→10:23)
--- NOTE | 2018-07-11 07:36 | PN ---
Subjective Date of Service: 07/11/18 Interval History: Pt feels worse today reporting he woke up at 4 am with generalized weakness, increase in cough and sputum production - he reports his SOB with exertion has improved since admission. Denies fevers/chills. Reports good appetite. Doesnt drink a lot of fluids which is his baseline. Denies CP. Took a shower this morning and felt he tolerated it well. Objective Active Medications: Albuterol/Ipratropium (Duoneb (Albuterol 2.5 Mg/Ipratropium 0.5 Mg)) 2 neb INH Q20M PRN PRN Reason: SHORTNESS OF BREATH Last Admin: 07/08/18 17:56 Dose: 1 neb Albuterol/Ipratropium (Duoneb (Albuterol 2.5 Mg/Ipratropium 0.5 Mg)) 1 neb INH Q4H PRN PRN Reason: SOB/WHEEZING Albuterol/Ipratropium (Duoneb (Albuterol 2.5 Mg/Ipratropium 0.5 Mg)) 1 neb INH [id number] AWAKE [facility] Last Admin: 07/11/18 01:16 Dose: 1 neb Benzonatate (Tessalon Cap*) 100 mg PO BID [facility] Last Admin: 07/10/18 21:02 Dose: 100 mg Digoxin (Lanoxin Tab*) 0.25 mg PO MoWeFr@1700 [facility] Last Admin: 07/10/18 17:04 Dose: 0.25 mg Diltiazem HCl (Cardizem Cd Cap*) 120 mg PO DAILY [facility] Last Admin: 07/10/18 09:07 Dose: 120 mg Finasteride (Proscar Tab*) 5 mg PO DAILY [facility] Last Admin: 07/10/18 09:07 Dose: 5 mg Guaifenesin (Robitussin*) 5 ml PO Q4H PRN PRN Reason: COUGH Heparin Sodium (Porcine) (Heparin Vial(*)) 5,000 units SUBCUT Q8HR [facility] Last Admin: 07/11/18 05:28 Dose: 5,000 units Methylprednisolone Sodium Succinate (Solu-Medrol 40 Mg) 40 mg IV Q12H [facility] Last Admin: 07/10/18 21:03 Dose: 40 mg Metoprolol Succinate (Toprol Xl Tab*) 50 mg PO DAILY [facility] Last Admin: 07/10/18 09:07 Dose: 50 mg Roflumilast (Daliresp (Nf)) 500 mcg PO DAILY [facility] Last Admin: 07/10/18 09:07 Dose: 500 mcg Throat Lozenges (Chloraseptic Emiliana*) 1 emiliana PO Q6H PRN PRN Reason: SORE THROAT Vital Signs - 8 hr 07/11/18 07/11/18 07/11/18 01:16 04:47 07:20 Temperature 98.0 F 97.7 F Pulse Rate 80 85 78 Respiratory 20 16 18 Rate Blood Pressure 111/49 142/70 (mmHg) O2 Sat by Pulse 96 94 95 Oximetry Oxygen Devices in Use Now: Nasal Cannula Appearance: 78 yo male A+O x3 in NAD. Eyes: No Scleral Icterus, PERRLA Ears/Nose/Mouth/Throat: Mucous Membranes Moist Neck: NL Appearance and Movements; NL JVP Respiratory: Symmetrical Chest Expansion and Respiratory Effort, - - right mid lung crackles noted - otherwise diminished throughout - no accessory muscle use - appears mildly dyspneic at rest (he did just ambulate back [facility] bathroom). Cardiovascular: NL Sounds; No Murmurs; No JVD, RRR, No Edema Abdominal: NL Sounds; No Tenderness; No Distention Skin: No Rash or Ulcers, No Nodules or Sclerosis Neurological: Alert and Oriented x 3, NL Sensation, NL Gait, NL Muscle Strength and Tone Lines/Tubes/Other Access: Clean, Dry and Intact Peripheral IV Nutrition: Taking PO's Result Diagrams: 07/11/18 06:13 07/11/18 06:13 Additional Lab and Data: Lab Results 07/08/18 07/08/18 07/08/18 Range/Units 14:49 14:49 14:49 WBC 7.9 (3.5-10.8) 10^3/ul RBC 4.84 (4.00-5.40) 10^6/ul Hgb 13.4 L (14.0-18.0) g/dl Hct 41 L (42-52) % MCV 85 (80-94) fL MCH 28 (27-31) pg MCHC 33 (31-36) g/dl RDW 15 (10.5-15) % Plt Count 168 (150-450) 10^3/ul MPV 8.2 (7.4-10.4) um3 Neut % (Auto) 83.7 H (38-83) % Lymph % (Auto) 8.3 L (25-47) % [place] % (Auto) 6.2 (0-7) % Eos % (Auto) 1.4 (0-6) % Baso % (Auto) 0.4 (0-2) % Absolute Neuts (auto) 6.6 (1.5-7.7) 10^3/ul Absolute Lymphs (auto) 0.7 L (1.0-4.8) 10^3/ul Absolute Monos (auto) 0.5 (0-0.8) 10^3/ul Absolute Eos (auto) 0.1 (0-0.6) 10^3/ul Absolute Basos (auto) 0 (0-0.2) 10^3/ul Absolute Nucleated RBC 0 10^3/ul Nucleated RBC % 0 Sodium 143 (135-145) mmol/L Potassium 4.1 (3.5-5.0) mmol/L Chloride 103 (101-111) mmol/L Carbon Dioxide 36 H (22-32) mmol/L Anion Gap 4 (2-11) mmol/L BUN 14 (6-24) mg/dL Creatinine 0.84 (0.67-1.17) mg/dL Est GFR ( Amer) 106.7 (>60) Est GFR (Non-Af Amer) 88.1 (>60) BUN/Creatinine Ratio 16.7 (8-20) Glucose 154 H (70-100) mg/dL Lactic Acid 0.7 (0.5-2.0) mmol/L Calcium 9.0 (8.6-10.3) mg/dL Total Bilirubin 0.40 (0.2-1.0) mg/dL AST 16 (13-39) U/L ALT 11 (7-52) U/L Alkaline Phosphatase 56 (34-104) U/L Troponin I 0.02 (<0.04) ng/mL B-Natriuretic Peptide ( - 100) pg/mL Total Protein 6.8 (6.4-8.9) g/dL Albumin 4.1 (3.2-5.2) g/dL Globulin 2.7 (2-4) g/dL Albumin/Globulin Ratio 1.5 (1-3) 07/08/18 Range/Units 14:49 WBC (3.5-10.8) 10^3/ul RBC (4.00-5.40) 10^6/ul Hgb (14.0-18.0) g/dl Hct (42-52) % MCV (80-94) fL MCH (27-31) pg MCHC (31-36) g/dl RDW (10.5-15) % Plt Count (150-450) 10^3/ul MPV (7.4-10.4) um3 Neut % (Auto) (38-83) % Lymph % (Auto) (25-47) % [place] % (Auto) (0-7) % Eos % (Auto) (0-6) % Baso % (Auto) (0-2) % Absolute Neuts (auto) (1.5-7.7) 10^3/ul Absolute Lymphs (auto) (1.0-4.8) 10^3/ul Absolute Monos (auto) (0-0.8) 10^3/ul Absolute Eos (auto) (0-0.6) 10^3/ul Absolute Basos (auto) (0-0.2) 10^3/ul Absolute Nucleated RBC 10^3/ul Nucleated RBC % Sodium (135-145) mmol/L Potassium (3.5-5.0) mmol/L Chloride (101-111) mmol/L Carbon Dioxide (22-32) mmol/L Anion Gap (2-11) mmol/L BUN (6-24) mg/dL Creatinine (0.67-1.17) mg/dL Est GFR ( Amer) (>60) Est GFR (Non-Af Amer) (>60) BUN/Creatinine Ratio (8-20) Glucose (70-100) mg/dL Lactic Acid (0.5-2.0) mmol/L Calcium (8.6-10.3) mg/dL Total Bilirubin (0.2-1.0) mg/dL AST (13-39) U/L ALT (7-52) U/L Alkaline Phosphatase (34-104) U/L Troponin I (<0.04) ng/mL B-Natriuretic Peptide 93 ( - 100) pg/mL Total Protein (6.4-8.9) g/dL Albumin (3.2-5.2) g/dL Globulin (2-4) g/dL Albumin/Globulin Ratio (1-3) Microbiology and Other Data: Microbiology 07/10/18 19:40 Gram Stain - Preliminary Sputum Assess/Plan/Problems-Billing Assessment: 78 yo male with PMH COPD on home O2 2L at bedtime and recently started wearing O2 2-3L during day the last few weeks on his own accord, hx of CAD s/p stent, afib, 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 pneumonia pneumonia/COPD exacerbation - Patient Problems (1) Streptococcal pneumonia Comment: Pt feels worse today now with generalized weakness, increase in cough and sputum production - he reports his SOB with exertion has improved since admission. + urine antigen. Initially was thought to be COPD exacerbation - no leukocytosis , fever and was started on solumedrol. Sputum cx sent yesterday which preliminary reports Gram 4+ cocci. CT chest obtained last night initially negative for acute process per radiologist this morning it was ammended to now noted a right lung consolidation. Baseline Home O2 2L QHS and for the past year he wears L when ambulating with no meed for O2 at rest. Start ceftriaxone 2gm Q24hrs IV per [facility] antibiotic guidelines Blood cx sent prior to antibiotics this am. continue solumedrol taper, duonebs and roflumilast Follows with pulmonology at [facility] - will try to obtain records - pt reports he was treated for a fungal pna at some point last year. (2) COPD exacerbation Comment: see above (3) Acute and chronic respiratory failure with hypoxia Comment: also due to copd exacerbation/PNA again, baseline is 2L nocturnally and while ambulating, and he has recently turned up to 3-4L round the clock (4) Acute hypercapnic respiratory failure Comment: due to copd exacerbation/PNA (5) Atrial fibrillation Comment: rate controlled on digoxin, cardizem, and metoprolol no AC per outpatient notes due to patient preference (6) CAD (coronary artery disease) Comment: he is not on asa or a statin, not clear why (7) Pacemaker (8) DVT prophylaxis Comment: HSQ Status and Disposition: inpatient - S. pneumonia pneumonia/COPD exacerbation. Most likely home when medically stable.
[2018-07-11] MEDS: methylPREDNISolone SOD 40 MG* 1 ML VIAL IV SCH ×2 (07:42→21:09)
[2018-07-11] MEDS: Finasteride TAB* 5 MG PO SCH (07:42)
[2018-07-11] MEDS: ROFLUMILAST 500 MCG PO SCH (07:42)
[2018-07-11] MEDS: Diltiazem CD CAP* 120 MG PO SCH (07:42)
[2018-07-11] MEDS: Metoprolol Succinate XL TAB* 50 MG PO SCH (07:42)
[2018-07-11] MEDS: Benzonatate CAP* 100 MG PO SCH ×2 (07:42→21:08)
[2018-07-12] MEDS: Albuterol/Ipratropium NEB.SOL* Albuterol 2.5 MG/Ipratropium 0.5 MG 3 ML INH SCH ×4 (01:30→21:02)
[2018-07-12] MEDS: Heparin VIAL(*) 5000 UNITS/ML VIAL (FIVE THOUSAND) SUBCUT SCH ×3 (06:21→20:01)
[2018-07-12 06:51] LABS: EGFR Non-African American 89.4 (>60)
[2018-07-12] MEDS: cefTRIAXone(*) 2 GM in NS 0.9% 100 ML* 100 ML IVPB SCH (08:14)
[2018-07-12] MEDS: methylPREDNISolone SOD 40 MG* 1 ML VIAL IV SCH ×2 (08:14→20:01)
[2018-07-12] MEDS: Diltiazem CD CAP* 120 MG PO SCH (08:15)
[2018-07-12] MEDS: Benzonatate CAP* 100 MG PO SCH ×2 (08:15→20:01)
[2018-07-12] MEDS: Metoprolol Succinate XL TAB* 50 MG PO SCH (08:15)
[2018-07-12] MEDS: ROFLUMILAST 500 MCG PO SCH (08:15)
[2018-07-12] MEDS: Finasteride TAB* 5 MG PO SCH (08:15)
--- NOTE | 2018-07-12 15:19 | PN ---
Subjective Date of Service: 07/12/18 Interval History: Patient was seen and examined earlier today. Reports feeling a little better, still with productive cough, but denies fever or chills. Ambulatory today, not feeling as weak as yesterday. Appetite better. Denies chest pain or dyspnea at rest. Has been on 2L/min oxygen for most yesterday, went up to 3 L/min at night with good sats. He has no new complaints today. Family History: Unchanged from Admission Social History: Unchanged from Admission Past Medical History: Unchanged from Admission Objective Active Medications: Albuterol/Ipratropium (Duoneb (Albuterol 2.5 Mg/Ipratropium 0.5 Mg)) 2 neb INH Q20M PRN PRN Reason: SHORTNESS OF BREATH Last Admin: 07/08/18 17:56 Dose: 1 neb Albuterol/Ipratropium (Duoneb (Albuterol 2.5 Mg/Ipratropium 0.5 Mg)) 1 neb INH Q4H PRN PRN Reason: SOB/WHEEZING Albuterol/Ipratropium (Duoneb (Albuterol 2.5 Mg/Ipratropium 0.5 Mg)) 1 neb INH [id number] AWAKE [facility] Last Admin: 07/12/18 13:21 Dose: 1 neb Benzonatate (Tessalon Cap*) 100 mg PO BID [facility] Last Admin: 07/12/18 08:15 Dose: 100 mg Digoxin (Lanoxin Tab*) 0.25 mg PO MoWeFr@1700 [facility] Last Admin: 07/10/18 17:04 Dose: 0.25 mg Diltiazem HCl (Cardizem Cd Cap*) 120 mg PO DAILY [facility] Last Admin: 07/12/18 08:15 Dose: 120 mg Finasteride (Proscar Tab*) 5 mg PO DAILY [facility] Last Admin: 07/12/18 08:15 Dose: 5 mg Guaifenesin (Robitussin*) 5 ml PO Q4H PRN PRN Reason: COUGH Heparin Sodium (Porcine) (Heparin Vial(*)) 5,000 units SUBCUT Q8HR [facility] Last Admin: 07/12/18 12:30 Dose: 5,000 units Ceftriaxone Sodium 2 gm/ (Sodium Chloride) 100 mls @ 200 mls/hr IVPB Q24H [facility] Last Admin: 07/12/18 08:14 Dose: 200 mls/hr Methylprednisolone Sodium Succinate (Solu-Medrol 40 Mg) 40 mg IV Q12H [facility] Stop: 07/12/18 22:00 Last Admin: 07/12/18 08:14 Dose: 40 mg Metoprolol Succinate (Toprol Xl Tab*) 50 mg PO DAILY [facility] Last Admin: 07/12/18 08:15 Dose: 50 mg Prednisone (Deltasone Tab*) 50 mg PO DAILY [facility] Roflumilast (Daliresp (Nf)) 500 mcg PO DAILY [facility] Last Admin: 07/12/18 08:15 Dose: 500 mcg Throat Lozenges (Chloraseptic Emiliana*) 1 emiliana PO Q6H PRN PRN Reason: SORE THROAT Vital Signs - 8 hr 07/12/18 07/12/18 07/12/18 07:23 07:30 08:00 Temperature 98.1 F Pulse Rate 77 82 Respiratory 16 14 18 Rate Blood Pressure 136/68 (mmHg) O2 Sat by Pulse 96 96 Oximetry 07/12/18 07/12/18 11:04 13:22 Temperature 98.2 F Pulse Rate 72 75 Respiratory 16 16 Rate Blood Pressure 142/65 (mmHg) O2 Sat by Pulse 94 92 Oximetry Oxygen Devices in Use Now: Nasal Cannula Appearance: Sitting up on his bed, reading newspapper. Appears comfortable and in NAD. Eyes: No Scleral Icterus, PERRLA Ears/Nose/Mouth/Throat: Clear Oropharnyx, Mucous Membranes Moist Neck: NL Appearance and Movements; NL JVP, Trachea Midline Respiratory: Symmetrical Chest Expansion and Respiratory Effort, - - Decreased breath sounds bilaterally. Mild bibasilar rhonchi, no wheezes or rales. Cardiovascular: NL Sounds; No Murmurs; No JVD, RRR Abdominal: NL Sounds; No Tenderness; No Distention Extremities: No Edema Skin: No Rash or Ulcers Neurological: Alert and Oriented x 3 Result Diagrams: 07/11/18 06:13 07/12/18 06:26 Additional Lab and Data: Lab Results 07/08/18 07/08/18 07/08/18 Range/Units 14:49 14:49 14:49 WBC 7.9 (3.5-10.8) 10^3/ul RBC 4.84 (4.00-5.40) 10^6/ul Hgb 13.4 L (14.0-18.0) g/dl Hct 41 L (42-52) % MCV 85 (80-94) fL MCH 28 (27-31) pg MCHC 33 (31-36) g/dl RDW 15 (10.5-15) % Plt Count 168 (150-450) 10^3/ul MPV 8.2 (7.4-10.4) um3 Neut % (Auto) 83.7 H (38-83) % Lymph % (Auto) 8.3 L (25-47) % [place] % (Auto) 6.2 (0-7) % Eos % (Auto) 1.4 (0-6) % Baso % (Auto) 0.4 (0-2) % Absolute Neuts (auto) 6.6 (1.5-7.7) 10^3/ul Absolute Lymphs (auto) 0.7 L (1.0-4.8) 10^3/ul Absolute Monos (auto) 0.5 (0-0.8) 10^3/ul Absolute Eos (auto) 0.1 (0-0.6) 10^3/ul Absolute Basos (auto) 0 (0-0.2) 10^3/ul Absolute Nucleated RBC 0 10^3/ul Nucleated RBC % 0 Sodium 143 (135-145) mmol/L Potassium 4.1 (3.5-5.0) mmol/L Chloride 103 (101-111) mmol/L Carbon Dioxide 36 H (22-32) mmol/L Anion Gap 4 (2-11) mmol/L BUN 14 (6-24) mg/dL Creatinine 0.84 (0.67-1.17) mg/dL Est GFR ( Amer) 106.7 (>60) Est GFR (Non-Af Amer) 88.1 (>60) BUN/Creatinine Ratio 16.7 (8-20) Glucose 154 H (70-100) mg/dL Lactic Acid 0.7 (0.5-2.0) mmol/L Calcium 9.0 (8.6-10.3) mg/dL Total Bilirubin 0.40 (0.2-1.0) mg/dL AST 16 (13-39) U/L ALT 11 (7-52) U/L Alkaline Phosphatase 56 (34-104) U/L Troponin I 0.02 (<0.04) ng/mL B-Natriuretic Peptide ( - 100) pg/mL Total Protein 6.8 (6.4-8.9) g/dL Albumin 4.1 (3.2-5.2) g/dL Globulin 2.7 (2-4) g/dL Albumin/Globulin Ratio 1.5 (1-3) 07/08/18 Range/Units 14:49 WBC (3.5-10.8) 10^3/ul RBC (4.00-5.40) 10^6/ul Hgb (14.0-18.0) g/dl Hct (42-52) % MCV (80-94) fL MCH (27-31) pg MCHC (31-36) g/dl RDW (10.5-15) % Plt Count (150-450) 10^3/ul MPV (7.4-10.4) um3 Neut % (Auto) (38-83) % Lymph % (Auto) (25-47) % [place] % (Auto) (0-7) % Eos % (Auto) (0-6) % Baso % (Auto) (0-2) % Absolute Neuts (auto) (1.5-7.7) 10^3/ul Absolute Lymphs (auto) (1.0-4.8) 10^3/ul Absolute Monos (auto) (0-0.8) 10^3/ul Absolute Eos (auto) (0-0.6) 10^3/ul Absolute Basos (auto) (0-0.2) 10^3/ul Absolute Nucleated RBC 10^3/ul Nucleated RBC % Sodium (135-145) mmol/L Potassium (3.5-5.0) mmol/L Chloride (101-111) mmol/L Carbon Dioxide (22-32) mmol/L Anion Gap (2-11) mmol/L BUN (6-24) mg/dL Creatinine (0.67-1.17) mg/dL Est GFR ( Amer) (>60) Est GFR (Non-Af Amer) (>60) BUN/Creatinine Ratio (8-20) Glucose (70-100) mg/dL Lactic Acid (0.5-2.0) mmol/L Calcium (8.6-10.3) mg/dL Total Bilirubin (0.2-1.0) mg/dL AST (13-39) U/L ALT (7-52) U/L Alkaline Phosphatase (34-104) U/L Troponin I (<0.04) ng/mL B-Natriuretic Peptide 93 ( - 100) pg/mL Total Protein (6.4-8.9) g/dL Albumin (3.2-5.2) g/dL Globulin (2-4) g/dL Albumin/Globulin Ratio (1-3) Microbiology and Other Data: Microbiology 07/10/18 19:40 Gram Stain - Preliminary Sputum RUN DATE: 07/12/18 [facility] LAB LIVE PAGE 1 RUN TIME: [address] [facility], [place], [place] [address] Specimen Inquiry Name: RYAN CARLOS : [address]: Darren Olvera MD Acct: [id number] Unit: [id number] AGE: 78 Location: [place] [address] Re07/08/18 SEX: M Status: ADM IN SPEC: [id number] MATT: 07/11/18-[address]: Sonia Guzman G[employer] DISPATCHER-C REQ: [id number] RECD: 07/11/18 STATUS: COMP OTHR DR: Wicho Olvera MD _ Deangelo Moore MD SOURCE: URINE SPDESC: ORDERED: Legion Ur Ag, S.pneumo Ur Ag COMMENTS: Verbal to [id number] (4N) by [id number] at 1015 on 07/11/18. Results read back accurately. Procedure Result Reported Site Legionella Urine Antigen Final 07/11/18- 1017 ML Organism 1 Negative Legionella Antigen Antigen testing by enzyme immunoassay S.Pneumonia Urine Antigen Final 07/11/18- 1017 ML Organism 1 POSITIVE S. PNEUMO ANTIGEN Antigen testing by enzyme immunoassay Diagnostic Imaging: . EKG Data: . 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 pneumonia pneumonia/COPD exacerbation. - Patient Problems (1) Streptococcal pneumonia Current Visit: Yes Status: Acute Comment: - Pt feels generally better today , with some improvement in cough and sputum production - he reports his SOB with exertion has improved since admission. - Positive urine antigen. Initially was thought to be COPD exacerbation - no leukocytosis, fever and was started on solumedrol. Sputum cx sent yesterday which preliminary reports Gram 4+ cocci. - CT chest obtained last night initially negative for acute process per radiologist, it was evetually noted to have a right lung consolidation. - Baseline Home O2 2L QHS and for the past year he wears L when ambulating with no meed for O2 at rest. - Start ceftriaxone 2gm Q24hrs IV per [facility] antibiotic guidelines - Blood cx sent prior to antibiotics, no growth so far. - Solumedrol switched to PO Prednisone, will joseline dose upon d/c to home. - Follows with pulmonology at [facility] - will try to obtain records - pt reports he was treated for a fungal pna at some point last year. (2) Acute and chronic respiratory failure with hypoxia Current Visit: Yes Status: Acute Comment: - Also due to copd exacerbation/ PNA - Continue Oxygen therapy at his baseline (3) Acute hypercapnic respiratory failure Current Visit: Yes Status: Acute Comment: - Due to COPD exacerbation/PNA (4) COPD exacerbation Current Visit: Yes Status: Acute Comment: - Continue neb treatments, steroids, cough suppressant (5) Pacemaker Current Visit: Yes Status: Acute Comment: - No acute issues. (6) Atrial fibrillation Current Visit: Yes Status: Chronic Comment: - Rate controlled on digoxin, cardizem, and metoprolol - No AC per outpatient notes due to patient preference (7) CAD (coronary artery disease) Current Visit: No Status: Chronic Comment: - He is not on asa or a statin, not clear why (8) DVT prophylaxis Current Visit: Yes Status: Acute Comment: - SQ heparin (9) Full code status Current Visit: Yes Status: Acute Status and Disposition: inpatient - S. pneumonia pneumonia/COPD exacerbation. Anticipate d/c to home when medically stable, likely in AM 07/13/2018.
[2018-07-12] MEDS: Digoxin TAB* 0.25 MG PO SCH (17:09)
[2018-07-13] MEDS: Albuterol/Ipratropium NEB.SOL* Albuterol 2.5 MG/Ipratropium 0.5 MG 3 ML INH SCH ×2 (01:43→07:22)
[2018-07-13] MEDS: Heparin VIAL(*) 5000 UNITS/ML VIAL (FIVE THOUSAND) SUBCUT SCH (05:27)
[2018-07-13] MEDS ORDERED: predniSONE TAB* 50 MG PO SCH (09:00)
[2018-07-13] MEDS: Metoprolol Succinate XL TAB* 50 MG PO SCH (09:50)
[2018-07-13] MEDS: Finasteride TAB* 5 MG PO SCH (09:50)
[2018-07-13] MEDS: cefTRIAXone(*) 2 GM in NS 0.9% 100 ML* 100 ML IVPB SCH (09:50)
[2018-07-13] MEDS: Diltiazem CD CAP* 120 MG PO SCH (09:50)
[2018-07-13] MEDS: ROFLUMILAST 500 MCG PO SCH (09:50)
[2018-07-13] MEDS: Benzonatate CAP* 100 MG PO SCH (09:50)
[2018-07-13 09:57] VITALS: BP 145/81
--- NOTE | 2018-07-13 22:46 | DS ---
DISCHARGE SUMMARY: DATE OF ADMISSION: 07/08/18 DATE OF DISCHARGE: 07/13/18 ADMITTING PHYSICIAN: Dr. Deangelo Moore. ATTENDING HOSPITALIST: While the patient is here was Dr. Connie Vale* ( dictated by LUCAS Goyal). PRIMARY CARE PROVIDER: Dr. Paris. ADMISSION DIAGNOSES: 1. Shortness of breath. 2. Productive cough. 3. Chronic obstructive pulmonary disease exacerbation. 4. Streptococcal pneumoniae. 5. Coronary artery disease. 6. Pacemaker placement status. 7. Atrial fibrillation. DISCHARGE DIAGNOSES: 1. Shortness of breath. 2. Productive cough. 3. Chronic obstructive pulmonary disease exacerbation. 4. Streptococcal pneumoniae. 5. Coronary artery disease. 6. Pacemaker placement status. 7. Atrial fibrillation. CONSULTATIONS: None. HISTORY OF PRESENT ILLNESS: Mr. Watters is a pleasant 78-year-old gentleman with past medical history of COPD, for which he has been on oxygen at home at 2 L baseline as well as history of coronary artery disease with pacemaker placement for bradycardia syndrome who presented to the hospital on 07/08/18 with complaints of worsening shortness of breath and productive cough for the past 3 days. The patient is normally followed by a implementation specialist at [facility] in [place], [place]. He uses a couple of nebulizers at home and uses oxygen for nights and occasionally during the day if he gets short of breath. He had noted increasing cough and shortness of breath for the past 3 days prior to his presentation. He continued to use his nebulizers and oxygen; however, his symptoms continued to worsen. He went to the [facility] for evaluation and had a chest x-ray that showed no evidence of acute process, but given his severity of symptoms and decreased oxygen saturation, he was sent to the emergency room for further evaluation. He had laboratory workup that revealed normal white count and had arterial blood gases that showed pH of 7.38 and CO2 of 62. His troponin and EKG were essentially normal. His oxygen saturation eventually improved on 4 L oxygen. He denied any fever or chills. He had some tachycardia, likely due to use of nebulizer; however, his blood pressure was stable. Given his multiple comorbidity and known COPD exacerbation , he was admitted for symptomatic management and for treatment of his COPD. HOSPITAL COURSE: The patient was admitted on 07/08/18 under hospitalist services. He was started empirically on antibiotics given his known COPD exacerbation as well as Solu-Medrol. He continued to improve on a daily basis using oxygen. On the second day of his hospitalization, he noted they have felt even worse with significant productive cough as well as low-grade fever. He had a chest CT as well as urine antigen check that came back positive for Streptococcal pneumoniae. The patient was covered with Rocephin and continued to receive nebulizer treatment. His laboratory workup was drawn one more time that revealed normal white count. He continued to improve slowly on a daily basis, but noticed significant improvement of his breathing over the past couple of days. On the morning of discharge, he was doing very well and we discussed all the discharge instructions including a followup with his implementation specialist at [facility]. He will continue oral course of cephalosporin at home for the next 5 days along with prednisone taper dose given his known COPD with exacerbation. He will also continue to use his oxygen at home as directed. On exam this morning, the patient was afebrile. His lungs were clear to auscultation with no evidence of wheezes or rhonchi. His heart was regular rate and rhythm without rubs, murmurs, or gallops. His abdomen was soft , nontender, and nondistended. He will be discharged to home in a stable condition and will follow up with his implementation specialist in the next week or 2. DISCHARGE MEDICATIONS: Include: 1. DuoNeb nebulizer 3 mL q.6 hours as needed for shortness of breath. 2. Digoxin 125 mcg p.o. q. Tuesday, Tuesday, and alternating with digoxin 0.25 mg q. Tuesday, Tuesday, and Tuesday. 3. Cardizem 120 mg p.o. daily. 4. Proscar 5 mg p.o. daily. 5. Fluticasone nasal spray, 2 sprays in each nostril once daily. 6. Metoprolol succinate 50 mg p.o. daily. 7. Daliresp 500 mcg tablets p.o. daily. 8. Crestor 10 mg p.o. q.h.s. 9. Tessalon Perles 100 mg p.o. b.i.d. 10. Keflex 500 mg p.o. t.i.d. x5 days. 11. Prednisone 10 mg tablets per tapered dose starting at 40 mg x2 days, then 30 mg x2 days, then 20 mg x2 days, then 10 mg x2 days, then 5 mg x2 days prior to discontinue. DISPOSITION: Discharged to home in a stable condition and to follow up with his implementation specialist at [facility] in [place], [place] in 1 to 2 weeks. LUCAS GOYAL [id number]/[facility] #: [id number] [facility]
== END 2018-07-13 11:15 | disposition home or self-care (01) | DRG 193 ==
LOC: ED 13:33 → MED 19:35
PROVIDERS: ADMIT Internal Medicine; ATTEND Student in an Organized Health Care Education/Training Program
DX: J13 Pneumonia due to Streptococcus pneumoniae (principal); J96.02 Acute respiratory failure with hypercapnia; J96.21 Acute and chronic respiratory failure with hypoxia; J44.0 Chronic obstructive pulmonary disease with (acute) lower respiratory infection; J44.1 Chronic obstructive pulmonary disease with (acute) exacerbation; I10 Essential (primary) hypertension; I25.10 Atherosclerotic heart disease of native coronary artery without angina pectoris; I48.91 Unspecified atrial fibrillation; Z88.1 Allergy status to other antibiotic agents; Z95.810 Presence of automatic (implantable) cardiac defibrillator; Z85.828 Personal history of other malignant neoplasm of skin; Z82.49 Family history of ischemic heart disease and other diseases of the circulatory system; Z87.891 Personal history of nicotine dependence; Z99.81 Dependence on supplemental oxygen; Z95.5 Presence of coronary angioplasty implant and graft
CPT/HCPCS: 36415; 71046; 71250; 80048; 80053; 82803; 83605; 83880; 84484; 85025; 86140; 86141; 87040; 87070; 87205; 87899; 93005; 94640; 99212; 99283; A9270-GY; G0463; J0696; J1644; J2920; J2930; J7512